=== PATIENT | female | born 1985 | race Caucasian/White ===

== ENCOUNTER 2024-12-26 05:39 | Emergency (ER) | payer OTHER, SELFPAY ==
[2024-12-26 05:50] VITALS: BP 138/96
[2024-12-26 06:21] VITALS: BMI 22.1
--- NOTE | 2024-12-26 06:23 | ED.GENMED ---
History of Present Illness
General
Chief Complaint: Alcohol Problem
Time Seen by Provider: 12/26/24 06:08
History of Present Illness
History of Present Illness:
39-year-old female with past medical history of alcohol abuse presenting to the emergency department for EtOH issues and suicidal statements. Patient notes prior to a lot of alcohol and had a outburst, which is typical of her drinking. She punched
a glass table with her right hand and made statements that she wanted to . She notes that she has made the statements in the past, however notes always related to alcohol. Denies history of diagnosed depression. She is not on any medications.
She does not follow with therapist. Denies chest pain or difficulty breathing. Denies suicidal attempts in the past. Denies drug abuse or additional acute medical complaints
Phy Exam
Physical Exam
Physical Exam:
General: Well-appearing, no clinical signs of dehydration, nontoxic and in no acute distress
HEENT: protecting airway
Neck: appears supple
CV: Normal heart rate, regular rhythm
Resp: No accessory muscle use, no increased work of breathing, lungs clear to auscultation bilaterally
Abd: No distention
Extremities: No deformities, no swelling. Mild abrasions to the knuckles on the right hand. Range of motion intact.
Neuro: alert, no focal neurologic deficit
: deferred
Rectal: deferred
Psych: Normal affect
Skin: Intact
Scores
Withdrawal Assessment of Alcohol
Withdrawal Assessment Completed?: Not applicable
Course
Orders/Labs/Results
Orders:
Orders
12/26/24 05:55
Test Result ONCE
12/26/24 06:17
Alcohol Urgent
Basic Metabolic Panel Urgent
Complete Blood Count/With Diff Urgent
HCG, Serum Qualitative Screen Urgent
Comment: Notify provider if positive test present
12/26/24 06:21
Crisis Consult Urgent
Reason for Consult: SI
12/26/24 06:24
1:1 Observation - Suicide/ Violent Behavior As Directed
12/26/24 06:34
0.9% Sodium Chloride 1000 ml [Nss] 1,000 ml IV BOLUS
12/26/24 07:24
Urine Drug Abuse Screen Urgent
Date Specimen was Collected: 12/26/24
Time Specimen was Collected: 05:55
Abnormal Lab Results
12/26/24
06:17
WBC 11.4 H 10^3/uL
(4.8-10.8)
MCH 31.5 H pg
(27.0-31.0)
Abs Immat Gran (auto) 0.1 H 10^3/uL
(0-0.05)
Absolute Neuts (auto) 7.0 H 10^3/uL
(1.4-6.5)
Absolute Monos (auto) 1.1 H 10^3/uL
(0.1-0.6)
Carbon Dioxide 19 L mmol/L
(22-30)
12/26/24 06:17
12/26/24 06:17
Vital Signs
Initial and Last Documented VS:
Initial Vital Signs
Temp Pulse Resp BP Pulse Ox
98.1 F 116 24 138/96 97
12/26/24 05:50 12/26/24 05:50 12/26/24 05:50 12/26/24 05:50 12/26/24 05:50
Last Documented Vital Signs
Temp Pulse Resp BP Pulse Ox
98.1 F 93 21 122/81 98
12/26/24 05:50 12/26/24 11:15 12/26/24 11:15 12/26/24 11:00 12/26/24 11:00
MDM/Problems Addressed
MDM/Problems Addressed:
39-year-old female presenting for alcohol abuse and suicidal statements. Vital signs significant for mild tachycardia.
On exam, patient is resting comfortably, no acute distress. Does note that she slept a few hours in between drinking and arrival to the ER. Does not appear to be significantly intoxicated and is answering questions appropriately. She admits to
having issues with alcohol which she believes causes depression as the suicidal statements. She notes that she does not typically feel suicidal when she is sober. Will consult with crisis. Feel patient would benefit more from inpatient
rehabilitation from an alcohol standpoint. Regards to intentional mass prior to arrival, mild abrasions, no deformities, no swelling without concern for fracture or malalignment. Will clean. Plan for screening laboratory analysis.
08:00 -in discussion with crisis, plan to find placement for dual therapy and patient is agreeable
11:20 -crisis was able to get patient into a facility, however she no longer wants to go to a facility for undergo outpatient. She has an appointment tomorrow at [facility]. Patient advised strongly to consider inpatient treatment. She notes
that she does not have any suicidal ideations or intent now that she is sober. Does not presently appear to be a risk to herself or others, or do feel that she would be more successful with inpatient therapy versus outpatient. However patient is
still declining. Stable for discharge, however advised that if she changes her mind at any time to return to the hospital.
*Pulse Oximetry
SaO2: 97
Oxygen Mode of Delivery: Room air
Patient hypoxic: no
*Critical Care Note
Total Time (30-74mins, 75-104mins- exclusive of procedures): Not Applicable
ED Attending Note
-
Portions of this chart may have been created with voice recognition software.� Occasional wrong word or��sound alike� substitutions may have occurred due to the inherent limitations of voice recognition software.
Discharge Plan
Departure
Patient Disposition: Home (Routine Discharge)
Date of Disposition: 12/26/24
Time of Disposition: 11:24
Patient with high blood pressure during this ER visit?: No
Condition: Good
Discharge Problem:
ETOH abuse, Depression
Instructions: Depression, Adult (DC), Alcohol Use Disorder (DC)
Referrals:
Sung Lopez DO [Family Provider]
Activity Restrictions/Additional Instructions:
You were seen in the emergency department for alcohol use disorder
You were seen by our crisis team and recommended for inpatient therapy. You declined after treatment had been arranged. It was strongly advised you consider inpatient therapy, however you are preferring to go outpatient.
Please follow-up closely with your primary care physician.
Return to the emergency department for any worsening of your symptoms particularly any thoughts of wanting to hurt yourself or others, or any development of chest pain, difficulty breathing, abdominal pain with persistent vomiting and inability to
tolerate food or liquid by mouth (concern for dehydration), weakness, headache or confusion, fever greater than 100.4, or any additional symptoms that are concerning to you.
Thank you for choosing [facility].
Interventions
Interventions:
*Risk Screen - Suicide Last Done: 12/26/24 06:21
*General Assessment Last Done: 12/26/24 06:21
*Neglect/Abuse Screening Last Done: 12/26/24 06:21
*ED- Fall Risk Assessment Last Done: 12/26/24 06:21
*ED COVID-19 Vaccine History Last Done: 12/26/24 06:21
*Nursing Disposition Last Done: 12/26/24 12:02
ED- Neurological Assessment Last Done: 12/26/24 07:47
ED-Psychological Assessment Last Done: 12/26/24 07:47
Discharge Date and Time
Discharge Date/Time: 12/26/24 12:02
Print Language: UKRAINIAN
[2024-12-26 06:43] LABS: HCG, Serum Qualitative Screen Negative
[2024-12-26] MEDS: NSS 1000 IV (06:52)
[2024-12-26 06:54] LABS: Blood Urea Nitrogen 11 mg/dl (7-17); Calcium 9.6 mg/dl (8.4-10.2); Carbon Dioxide 19 mmol/L (22-30); Chloride 107 mmol/L (98-107); Estimated Creatinine Clearance 102 ml/min; Glucose 95 mg/dl (70-99); Potassium 4.3 mmol/L (3.5-5.1); Sodium 140 mmol/L (135-145); eGFR > 60.00
[2024-12-26 07:10] LABS: Hematocrit 39.0 % (37.0-47.0); Hemoglobin 13.8 g/dL (12.0-16.0); Mean Corp Hgb Conc. 35.4 g/dL (33.0-37.0); Mean Corpuscular Volume 89.0 fL (81.0-99.0); Nucleated Red Blood Cells % 0 %; Red Cell Dist. Width 11.7 % (11.5-14.5)
[2024-12-26 07:24] VITALS: BP 131/80
[2024-12-26 08:00] VITALS: BP 127/91
[2024-12-26 09:00] VITALS: BP 136/85
[2024-12-26 10:00] VITALS: BP 126/81
[2024-12-26 11:00] VITALS: BP 122/81
== END 2024-12-26 12:02 | disposition home or self-care (01) ==
LOC: EMR 05:39
PROVIDERS: EMERGENCY PHYSICIAN Student in an Organized Health Care Education/Training Program; FAMILY PHYSICIAN Family Medicine
DX: F10.10 Alcohol abuse, uncomplicated (principal); F32.A Depression, unspecified; R45.851 Suicidal ideations
CPT/HCPCS: 99285; 96360; 80048; 80306; 82077; 84703; 85025